=== PATIENT | male | born 1980 | race Caucasian/White ===

== ENCOUNTER 2017-07-16 09:13 | Day surgery (SDC) | payer OTHER ==
[2017-07-10 10:58] VITALS: BMI 25.0
[~2017-07-16] VITALS: Ht 170.2 cm; Wt 74.1 kg
[~2017-07-16 09:13] MED LIST: CEFAZOLIN 2000MG IV PUSH 10 ML IV SCH; LACTATED RINGER'S 1000ML 1,000 ML IV SCH; ONDA4TAB46 PO; PRLSR20 PO; TRMCR130WC TOP
[2017-07-16] MEDS ORDERED: LIDOCAINE HCL 2% 2 ML VIAL (20MG/ML) ONE (09:19)
[2017-07-16] MEDS ORDERED: ROCURONIUM BROMIDE 10 MG/ML 5 ML VIAL IV ONE (09:19)
[2017-07-16] MEDS ORDERED: PROPOFOL IV EMULSION 10 MG/ML 20 ML VIAL IV ONE (09:19)
[2017-07-16] MEDS ORDERED: FENTANYL CITRATE INJ 50 MCG/1 ML 2 ML VIAL ONE ×2 (09:19→11:37)
[2017-07-16] MEDS ORDERED: MIDAZOLAM HCL 1 MG/ML 2ML VIAL ONE (09:19)
[2017-07-16 09:46] VITALS: TEMP 36.9; Ht 170.2 cm; Wt 74.1 kg
[2017-07-16] MEDS ORDERED: CEFAZOLIN SOD 1 GM VIAL ONE (09:56)
[2017-07-16] MEDS ORDERED: BUPIVACAINE 0.5 % 5 MG/1 ML MPF 30ML VIAL ONE (09:56)
[2017-07-16] MEDS ORDERED: HEPARIN SOD (PORCINE) 1000 UNIT/ML 10 ML VIAL ONE (09:56)
--- NOTE | 2017-07-16 10:29 | History & Physical Bridge Note ---
H&P Re-Evaluation Bridge Note: I have examined the patient, reviewed the History & Physical and in the interval since the performance of the History & Physical I have noted the following changes of clinical significance: No changes noted
[2017-07-16] MEDS ORDERED: ONDANSETRON INJ 2 MG/ML 2 ML VIAL ONE (10:51)
[2017-07-16] MEDS ORDERED: DEXAMETHASONE SOD INJ 4 MG/ML VIAL ONE (10:51)
[2017-07-16] MEDS ORDERED: NEOSTIGMINE METHYLSULFATE 5 MG/5 ML SYR ONE (10:51)
[2017-07-16] MEDS ORDERED: GLYCOPYRROLATE INJ 0.2 MG/ML VIAL ONE (10:51)
[2017-07-16] MEDS ORDERED: FLUMAZENIL 0.1 MG/1 ML 10 ML VIAL IV PRN (11:15)
[2017-07-16] MEDS ORDERED: EpHEDrine SULFATE INJ 50 MG/ML AMP IV PRN (11:15)
[2017-07-16] MEDS ORDERED: PROMETHAZINE HCL INJ 12.5 MG in SODIUM CHLORIDE 0.9% 50ML 50 ML IV PRN (11:15)
[2017-07-16] MEDS ORDERED: NALOXONE HCL 0.4 MG/1 ML VIAL/CARP IV PRN (11:15)
[2017-07-16] MEDS ORDERED: ATROPINE SULFATE 0.1 MG/ML 5ML SYR IV PRN (11:15)
[2017-07-16] MEDS ORDERED: ONDANSETRON INJ 2 MG/ML 2 ML VIAL IV PRN ×2 (11:15→12:00)
[2017-07-16] MEDS: FENTANYL CITRATE INJ 50 MCG/1 ML 2 ML VIAL IV PRN ×2 (11:48→12:10)
[2017-07-16] MEDS ORDERED: SODIUM CHLORIDE 0.9% 1000ML 1,000 ML IV SCH (11:52)
--- NOTE | 2017-07-16 11:52 | [facility] Post Operative Brief Note ---
Immediate Operative Summary Operative Date Jul 16, 2017. Pre-Operative Diagnosis Adenomyomatosis of gallbladder Post-Operative Diagnosis Adenomyomatosis of gallbladder Procedure(s) Performed laparoscopic cholecystectomy Surgeon Dr. Eligio Harkins Hydraulic Technician Surgeon(s) MELISSA Kruse Estimated Blood Loss 3 cc Findings See dictation Specimens A: Gallblader and contents Drains None Anesthesia General Complication(s) None Disposition Recovery Room / PACU
--- NOTE | 2017-07-16 11:56 | Discharge Instructions ---
Discharge Instructions Date of Service Jul 16, 2017. Admission Reason for Admission: Right Upper Quadrant Abdominal Pain Discharge Discharge Diagnosis / Problem: Same Discharge Goals Goal(s): Decrease discomfort, Improve nutritional status Activity Recommendations Activity Limitations: per Instructions/Follow-up section Lifting Limitations: no more than 10 pounds (for 2 weeks) Shower/Bathe: tomorrow (shower tomorrow) . Current Hospital Diet Patient's current hospital diet: Discharge Diet Recommended Diet: Regular Diet Procedures Procedures Performed: laparoscopic cholecystectomy Pending Studies Studies pending at discharge: yes List of pending studies: Pathology Medical Emergencies . Who to Call and When: Medical Emergencies: If at any time you feel your situation is an emergency, please call 911 immediately. . Non-Emergent Contact Non-Emergency issues call your: Primary Care Provider, Surgeon Call Non-Emergent contact if: your pain is worsening, wound has increased redness, wound has increased pain . "Provider Documentation" section prepared by Eligio Harkins. . VTE Core Measure Inpt VTE Proph given/why not?: Treatment not indicated
[2017-07-16] MEDS ORDERED: OXYCODONE/ACETAMINOPHEN 5-325 TAB PO PRN (12:00)
[2017-07-16] MEDS ORDERED: MoRPHine SULFATE 4 MG/ML 1 ML CARP\\VIAL IV PRN (12:00)
--- NOTE | 2017-07-16 12:18 | OPERATIVE REPORT ---
DATE OF OPERATION: 07/16/2017 PREOPERATIVE DIAGNOSIS: Adenomyomatosis of the gallbladder and chronic nausea. POSTOPERATIVE DIAGNOSIS: Same. PROCEDURE: Laparoscopic cholecystectomy. SURGEON: Dr. Harkins. FINDINGS: The gallbladder was not dilated. The cystic duct was not dilated. The liver was of normal size and contour. A visualization of the remainder of the abdomen revealed no other abnormalities. TECHNIQUE: The patient was given a general anesthetic and the area was prepped and draped in usual sterile fashion. A small transverse incision was made below the umbilicus, carried down through the subcutaneous tissue to the fascia which was grasped with 2 Marcos clamps and incised between. The peritoneum was identified, incised, and the introducer was placed bluntly. The abdomen was then insufflated to a pressure of 15 mmHg with carbon dioxide. The upper midline, midclavicular and anterior axillary introducers were placed under direct vision through small skin incisions. Traction was placed on the gallbladder and the adhesions to the infundibulum area were taken down using electrocautery. Traction was placed on the infundibulum and the peritoneum was opened on the lateral side. The peritoneum was peeled down towards the common bile duct as was the connective tissue. Further dissection was carried anteriorly and into the triangle of Calot. The gallbladder was then freed from the liver on the lateral side and the medial side allowing for good mobility. This allowed me then to skeletonize the cystic duct and confidently identify the cystic duct gallbladder junction and establish a window behind it. The cystic artery was identified in the triangle of Calot and was isolated as well. Three clips were placed on the proximal cystic duct, 1 near the gallbladder and it was divided. Two clips were placed on the proximal cystic artery, one near the gallbladder and it was divided. The gallbladder was then peeled off the liver bed using electrocautery with ease. The gallbladder was placed into an Endobag and brought out through the upper midline incision. The introducer was replaced and liver edge was elevated. The subdiaphragmatic and subhepatic spaces were irrigated and irrigation removed. The gallbladder bed of the liver was inspected and there was no bleeding. The previously placed clips were intact. At this point, we navigated the abdomen with the camera looking for any other abnormalities and none were identified. The appendix appeared normal. The gas was allowed to escape and the introducers were removed. The fascia of the umbilical and upper midline introducer sites was closed with interrupted 0 Vicryl. The skin of all the incisions was closed with 4-0 Monocryl in either an interrupted or running subcuticular fashion. The skin was anesthetized with 0.5% Marcaine. The skin was cleansed, dried, benzoin placed, Steri-Strips applied. Estimated blood loss was 3 mL. Sponge, needle and instrument counts were correct prior to closure. The patient tolerated the surgical procedure without complication and was transferred to recovery. I attest to the content of the Intraoperative Record and any orders documented therein. Any exception s are noted below.
[2017-07-16 12:40] VITALS: BP 109/69; PULSE 54; TEMP 36.6; O2SAT 100
--- NOTE | 2017-07-16 12:48 | Anesthesiology Progress Note ---
Anesthesia Post Op Note Date & Time Jul 16, 2017 at 12:48 Vital Signs Pain Intensity: 4 Vital Signs Past 12 Hours Date Time Temp Pulse Resp B/P (MAP) Pulse Ox O2 Delivery O2 Flow Rate FiO2 07/16/17 12:30 55 15 108/71 99 Nasal Cannula 07/16/17 12:20 36.4 49 16 102/69 99 Nasal Cannula 07/16/17 12:10 58 16 111/74 97 Nasal Cannula 07/16/17 12:00 50 14 111/74 100 Oxymask 8 07/16/17 11:50 52 16 115/81 100 Oxymask 8 07/16/17 11:40 36.2 66 16 117/81 100 Oxymask 8 07/16/17 09:46 36.9 18 Notes Mental Status: alert / awake / arousable, participated in evaluation Pt Amnestic to Procedure: Yes Nausea / Vomiting: adequately controlled Pain: adequately controlled Airway Patency, RR, SpO2: stable & adequate BP & HR: stable & adequate Hydration State: stable & adequate Anesthetic Complications: no major complications apparent
[2017-07-16 13:12] VITALS: BP 111/70; PULSE 69; TEMP 36.8; O2SAT 100
[2017-07-16 14:05] VITALS: BP 112/70; PULSE 57; TEMP 36.5; O2SAT 96
== END 2017-07-16 14:25 | disposition home or self-care (01) ==
LOC: C.ACU 09:13
PROVIDERS: ATTEND Surgery
DX: K82.8 Other specified diseases of gallbladder (principal); R11.0 Nausea; K82.4 Cholesterolosis of gallbladder; J45.909 Unspecified asthma, uncomplicated; Z98.890 Other specified postprocedural states; Z87.891 Personal history of nicotine dependence